=== PATIENT | female | born 1960 | race Caucasian/White ===

== ENCOUNTER → 2016-05-21 | Outpatient (CLI) | payer OTHER ==
[~2016-05-21] MED LIST: ANAFRANIL50 MG PO; ASPIRIN PO; DARVOCET-N 1001 TAB PO; DYAZIDE 37.5/251 CAP PO; FLEXERIL PO; NEURONTIN PO; NORCO 10/325 TA1 TAB PO; PEXEVA; PREDNISONE50 MG PO; SINGULAIR PO; SPIRIVA18 MCG INH; TOPAMAX PO; ZEGERID40 MG/PKT PO
[2016-05-21 12:12] LABS: THYROID STIMULATING HORMONE 5.12 uIU/ml (0.34-5.60)
[2016-05-21 15:05] LABS: FREE T3 3.3 pg/mL (2.5-3.9)
[2016-05-21 15:06] LABS: FREE THYROXIN (T4) 0.87 ng/dL (0.58-1.64)
== END | disposition home or self-care (01) ==
LOC: SLAB 10:53
PROVIDERS: Specialist
DX: C73 Malignant neoplasm of thyroid gland (principal); E89.0 Postprocedural hypothyroidism
CPT/HCPCS: 36415; 84439; 84443; 84481

== ENCOUNTER → 2016-07-30 | Outpatient (CLI) | payer OTHER ==
[2016-07-30 12:03] LABS: THYROID STIMULATING HORMONE 1.32 uIU/ml (0.34-5.60)
[2016-07-30 15:03] LABS: FREE T3 3.3 pg/mL (2.5-3.9)
[2016-07-30 15:05] LABS: FREE THYROXIN (T4) 1.3 ng/dL (0.58-1.64)
== END | disposition home or self-care (01) ==
LOC: SLAB 10:41
PROVIDERS: Specialist
DX: C73 Malignant neoplasm of thyroid gland (principal); E89.0 Postprocedural hypothyroidism
CPT/HCPCS: 36415; 84439; 84443; 84481

== ENCOUNTER → 2016-11-16 | Outpatient (CLI) | payer OTHER ==
[2016-11-16 10:11] LABS: THYROID STIMULATING HORMONE 1.31 uIU/ml (0.34-5.60)
[2016-11-16 11:50] LABS: FREE THYROXIN (T4) 1.04 ng/dL (0.58-1.64)
== END | disposition home or self-care (01) ==
LOC: SLAB 08:54
PROVIDERS: Specialist
DX: Z08 Encounter for follow-up examination after completed treatment for malignant neoplasm (principal); E89.0 Postprocedural hypothyroidism; E85.0 Non-neuropathic heredofamilial amyloidosis
CPT/HCPCS: 36415; 84432; 84439; 84443; 84481